=== PATIENT | female | born 1975 | race Caucasian/White ===

== ENCOUNTER 2018-02-18 11:22 | Emergency (ER) | payer SELFPAY ==
[2018-02-18] MEDS ORDERED: MORPHINE SULFATE 10 MG/ML INJ IV ONE ×2 (12:20→13:27)
[2018-02-18] MEDS ORDERED: NORMAL SALINE 1000 ML 1,000 ML IV ONE (12:21)
[2018-02-18] MEDS ORDERED: ONDANSETRON HCL INJ/PF 4 MG/2 ML SDV IV ONE ×2 (12:21→13:27)
--- NOTE | 2018-02-18 12:26 | ER Document Report ---
ED Medical Screen (RME) - General Chief Complaint: Abdominal Pain Stated Complaint: ABDOMINAL/ABDOMINAL PAIN Time Seen by Provider: 02/18/18 12:14 Mode of Arrival: Ambulatory Information source: Patient TRAVEL OUTSIDE OF THE [place] IN LAST 30 DAYS: No - HPI Patient complains to provider of: Abdominal pain Onset: Other - This is a 42-year-old HIV-positive female with an undetectable viral load and a normal CD4 count that presents for evaluation of pain in her right lower back as well as her right lower abdomen. Endorses nausea associated with this intense pain along the right side without any obvious dysuria constipation or other symptoms. Denies any fevers or chills. Is uncertain whether or not this could be related to her back pain. She does have her appendix she does have her gallbladder. - Related Data Allergies/Adverse Reactions: Penicillins Allergy (Verified 02/18/18 11:25) Past Medical History - Social History Chew tobacco use (# tins/day): No Frequency of alcohol use: None Drug Abuse: None Renal/ Medical History: Denies: Hx Peritoneal Dialysis Physical Exam - Vital signs Vitals: Temp Pulse Resp BP Pulse Ox 98.8 F 80 18 131/77 H 96 02/18/18 11:33 02/18/18 11:33 02/18/18 11:33 02/18/18 11:33 02/18/18 11:33 Course - Re-evaluation Re-evalutation: 02/18/18 12:22 This is a 42-year-old HIV-positive female with right lower quadrant abdominal pain. On examination she has remarkable tenderness with true rebound. We will initiate workup for potential appendicitis. I performed a rapid medical screening examination on this patient, I believe that she will require further investigation disposition determination will defer to secondary provider. - Vital Signs Vital signs: Temp Pulse Resp BP Pulse Ox 98.8 F 80 18 131/77 H 96 02/18/18 11:33 02/18/18 11:33 02/18/18 11:33 02/18/18 11:33 02/18/18 11:33
[2018-02-18 13:13] LABS: APPEARANCE,URINE CLEAR; BILIRUBIN,URINE NEGATIVE (NEGATIVE); GLUCOSE, URINE NEGATIVE (NEGATIVE); KETONES,URINE NEGATIVE (NEGATIVE)
[2018-02-18 13:14] LABS: ADD MANUAL MICROSCOPIC YES; BACTERIA,URINE TRACE /HPF; COLOR,URINE LIGHT YELLOW; LEUKOCYTE ESTERASE,URINE NEGATIVE (NEGATIVE); NITRITE,URINE NEGATIVE (NEGATIVE); PROTEIN,URINE NEGATIVE (NEGATIVE); UROBILINOGEN,URINE NEGATIVE mg/dL (<2.0); WBC,URINE 0-1 /HPF
[2018-02-18 13:23] LABS: URINE AMPHETAMINES SCREEN NEGATIVE; URINE BARBITURATES SCREEN NEGATIVE; URINE BENZODIAZEPINES SCREEN NEGATIVE; URINE COCAINE SCREEN NEGATIVE; URINE MARIJUANA (THC) SCREEN NEGATIVE; URINE METHADONE SCREEN NEGATIVE; URINE PHENCYCLIDINE SCREEN NEGATIVE
[2018-02-18] MEDS ORDERED: KETOROLAC TROMETHAMINE INJ/PF 30 MG/1 ML SDV IV ONE (13:26)
[2018-02-18 13:48] LABS: ABSOLUTE BASOPHILS # (AUTO) 0.1 10^3/uL (0.0-0.2); ABSOLUTE EOSINOPHILS # (AUTO) 0.1 10^3/uL (0.0-0.6); ABSOLUTE LYMPHOCYTES (AUTO) 3.9 10^3/uL (0.5-4.7); ABSOLUTE MONOCYTES (AUTO) 0.5 10^3/uL (0.1-1.4); ABSOLUTE NEUT (AUTO) 4.7 10^3/uL (1.7-8.2); BASOPHILS % (AUTO) 0.6 % (0-2); EOSINOPHILS % (AUTO) 0.9 % (0-6); HEMOGLOBIN 15.3 g/dL (12.0-15.5); LYMPHOCYTES % (AUTO) 42.1 % (13-45); MEAN CORPUSCULAR HEMOGLOBIN 31.6 pg (27.0-33.4); MEAN CORPUSCULAR HGB CONC 34.8 g/dL (32.0-36.0); MEAN CORPUSCULAR VOLUME 91 fl (80-97); MONOCYTES % (AUTO) 5.2 % (3-13); PLATELET COUNT 311 10^3/uL (150-450); RED BLOOD COUNT 4.85 10^6/uL (3.72-5.28); RED CELL DISTRIBUTION WIDTH 13.5 % (11.5-14.0); SEGMENTED NEUTROPHILS % (AUTO) 51.2 % (42-78); TOTAL CELLS COUNTED % (AUTO) 100 %; WHITE BLOOD COUNT 9.2 10^3/uL (4.0-10.5)
[2018-02-18 14:09] LABS: ALANINE AMINOTRANSFERASE 38 U/L (9-52); ALBUMIN 4.4 g/dL (3.5-5.0); ALKALINE PHOSPHATASE 146 U/L (38-126); ANION GAP 11 (5-19); ASPARTATE AMINO TRANSFERASE 28 U/L (14-36); BILIRUBIN,DIRECT 0.1 mg/dL (0.0-0.4); BILIRUBIN,TOTAL 0.5 mg/dL (0.2-1.3); BLOOD UREA NITROGEN 10 mg/dL (7-20); CARBON DIOXIDE 25 mmol/L (22-30); CHLORIDE 105 mmol/L (98-107); GLUCOSE 87 mg/dL (75-110); LIPASE 93.6 U/L (23-300); POTASSIUM 4.8 mmol/L (3.6-5.0); SODIUM 141.3 mmol/L (137-145); TOTAL PROTEIN 7.6 g/dL (6.3-8.2)
--- NOTE | 2018-02-18 16:02 | RADIOLOGY REPORT (SQ) ---
EXAM DESCRIPTION: CT ABD/PELVIS WITH IV ONLY COMPLETED DATE/TIME: 02/18/2018 3:41 pm REASON FOR STUDY: concern for appendicitis COMPARISON: None. TECHNIQUE: CT scan of the abdomen and pelvis performed using helical scanning technique with dynamic intravenous contrast injection. No oral contrast. Images reviewed with lung, soft tissue, and bone windows. Reconstructed coronal and sagittal MPR images reviewed. Delayed images for evaluation of the urinary system also acquired. All images stored on PACS. All CT scanners at this facility use dose modulation, iterative reconstruction, and/or weight based d osing when appropriate to reduce radiation dose to as low as reasonably achievable (ALARA). [facility]: Dose Right [facility]: CareDose [facility]: Dose Right [facility]: Teradose 4D [facility]: Jogli CONTRAST TYPE AND DOSE: contrast/concentration: Isovue 350.00 mg/ml; Total Contrast Delivered: 93.0 ml; Total Saline Delivered: 71.0 ml 93 cc Omnipaque 350- low osmolar. RENAL FUNCTION: None required. The patient is less than 50 years old. RADIATION DOSE: CT Rad equipment meets quality standard of care and radiation dose reduction techniq ues were employed. CTDIvol: 12.6 - 17.1 mGy. DLP: 1659 mGy-cm.. LIMITATIONS: None. FINDINGS: LOWER CHEST: No significant findings. No nodules or infiltrates. LIVER: Normal size. No masses. No dilated ducts. SPLEEN: Normal size. No focal lesions. PANCREAS: No masses. No significant calcifications. No adjacent inflammation or peripancreatic fluid collections. Pancreatic duct not dilated. GALLBLADDER: No identified stones by CT criteria. No inflammatory changes to suggest cholecystitis. ADRENAL GLANDS: No significant masses or asymmetry. RIGHT KIDNEY AND URETER: No solid masses. No significant calcifications. No hydronephrosis or hyd roureter. LEFT KIDNEY AND URETER: No solid masses. No significant calcifications. No hydronephrosis or hydr oureter. AORTA AND VESSELS: No aneurysm. No dissection. Renal arteries, SMA, celiac without stenosis. RETROPERITONEUM: No retroperitoneal adenopathy, hemorrhage or masses. BOWEL AND PERITONEAL CAVITY: No masses or inflammatory changes. No free fluid or peritoneal masses. APPENDIX: Normal. PELVIS: No mass. No free fluid. Normal bladder. ABDOMINAL WALL: No masses. No hernias. BONES: No significant or acute findings. OTHER: No other significant finding. IMPRESSION: NO SIGNIFICANT OR ACUTE FINDING IN THE ABDOMEN OR PELVIS ON CT SCAN WITH IV CONTRAST. N o CT evidence of appendicitis as clinically questioned. TECHNICAL DOCUMENTATION: JOB ID: [id number] Quality ID # [id number]: Final reports with documentation of one or more dose reduction techniques (e.g., Au tomated exposure control, adjustment of the mA and/or kV according to patient size, use of iterative reconstruction technique) 2010 [employer]- All Rights Reserved Reading location - IP/workstation name: [email or web address]
--- NOTE | 2018-02-18 16:44 | ER Document Report ---
ED GI/ - General Chief Complaint: Abdominal Pain Stated Complaint: ABDOMINAL/ABDOMINAL PAIN Time Seen by Provider: 02/18/18 12:14 Mode of Arrival: Ambulatory Information source: Patient, Relative Notes: Patient is a 42-year-old female comes emergency room complaining of abdominal pain. Patient states that right side and right flank pain. Started yesterday and has been constant it has been dull and sharp. Anything she does hurts it. She denies any nausea vomiting or diarrhea states she has a history of kidney stones but this does not feel exactly like a kidney stone. She cannot find a position of comfort. She denies any fever. Patient has a history of MIs. And she smokes 1/2 packs here today. She also states that she has a history of blood in her urine in the past. She also has a history of HIV high cholesterol , hypertension, GERD, and kidney stones. She had a tubal ligation and lipoma removed and a heart cath. TRAVEL OUTSIDE OF THE [place] IN LAST 30 DAYS: No - HPI Patient complains to provider of: Abdominal pain, Flank pain. No: Diarrhea, Dysuria Onset: Yesterday Timing/Duration: Sudden, Gradual, Persistent, Worse Quality of pain: Achy, Burning, Pressure, Throbbing Severity at maximum: Moderate Pain Level: 4 Location: RUQ, Right flank Adult Front & Back Diagram: 1 - Area of pain discomfort LMP: Now Sexual history: Inactive Associated symptoms: Radiates to back Exacerbated by: Movement, Walking, Coughing, Deep breathing Relieved by: Denies Similar symptoms previously: Yes Recently seen / treated by doctor: No - Related Data Allergies/Adverse Reactions: Penicillins Allergy (Verified 02/18/18 12:23) Past Medical History - Social History Smoking Status: Current Every Day Smoker Cigarette use (# per day): Yes Chew tobacco use (# tins/day): No Smoking Education Provided: No - Pack a day Frequency of alcohol use: None Drug Abuse: None Family History: Reviewed & Not Pertinent Patient has suicidal ideation: No Patient has homicidal ideation: No - Past Medical History Cardiac Medical History: Reports: Hx Heart Attack, Hx Hypercholesterolemia, Hx Hypertension Renal/ Medical History: Reports: Hx Kidney Stones. Denies: Hx Peritoneal Dialysis GI Medical History: Reports: Hx Gastroesophageal Reflux Disease Past Surgical History: Reports: Hx Cardiac Catheterization - with stent, Hx Orthopedic Surgery - carpal tunnel, Hx Tubal Ligation Review of Systems - Review of Systems Constitutional: No symptoms reported EENT: No symptoms reported Cardiovascular: No symptoms reported Respiratory: No symptoms reported Gastrointestinal: Abdominal pain. denies: Nausea, Vomiting, Constipation Genitourinary: No symptoms reported Female Genitourinary: No symptoms reported Musculoskeletal: No symptoms reported Skin: No symptoms reported Hematologic/Lymphatic: No symptoms reported Neurological/Psychological: No symptoms reported -: Yes All other systems reviewed and negative Physical Exam - Vital signs Vitals: Temp Pulse Resp BP Pulse Ox 98.8 F 80 18 131/77 H 96 02/18/18 11:33 02/18/18 11:33 02/18/18 11:33 02/18/18 11:33 02/18/18 11:33 Interpretation: Hypertensive - General General appearance: Alert In distress: None - HEENT Head: Normocephalic, Atraumatic Eyes: Normal Conjunctiva: Normal Cornea: Normal Ears: Normal External canal: Normal Tympanic membrane: Normal Sinus: Normal Nasal: Normal, Clear rhinorrhea Mouth/Lips: Other Mucous membranes: Normal, Moist, Other Pharynx: Normal. No: Erythema, Exudate, Peritonsillar abscess, Post nasal drainage, Retropharyngeal abscess, Tonsillar hypertrophy, Uvular edema, Potential airway comprom. Neck: Normal, Supple, Thyroid nodule. No: Anterior cervical chain, Posterior cervical chain, Brudzinski, Carotid bruit, Kernig's, Lymphadenopathy, Meningismus, Neck mass, Shotty nodes, Subcutaneous emphysema, Thyromegally - Respiratory Chest status: Nontender Breath sounds: Normal Chest palpation: Normal - Cardiovascular Rhythm: Regular Heart sounds: Normal auscultation Murmur: No - Abdominal Inspection: Normal Distension: No distension, Other - Examination patient's abdomen shows it to be slightly distended mildly tympanitic in the upper quadrants. There is no specific tenderness to percussion or palpation. Bowel sounds are present but they are slightly decreased. Patient has no specific abdominal signs no peritoneal signs. She does have a over exaggerated response when I have ballottement to the right lower quad to mid quad area in the kidney area. There is moderate tenderness to this. Percussions light tenderness on the right side left is negative. Tenderness: No: Nontender, Tender, McBurney's point, Field's sign, Guarding, Rebound, Other Organomegaly: No: No organomegaly - Back Back: Normal, Tender. No: Deformity/step-off, CVA tenderness, Vertebra tenderness, Scars, Scoliosis, Wounds - Extremities General upper extremity: Normal inspection, Nontender, Normal ROM, Normal strength General lower extremity: Normal inspection, Nontender, Normal ROM, Normal strength - Neurological Neuro grossly intact: Yes Cognition: Normal Orientation: AAOx4 Barnum Coma Scale Eye Opening: Spontaneous Barnum Coma Scale Verbal: Oriented Barnum Coma Scale Motor: Obeys Commands Barnum Coma Scale Total: 15 Speech: Normal Cranial nerves: Normal - Skin Skin Temperature: Warm Skin Moisture: Dry Course - Re-evaluation Re-evalutation: 02/18/18 17:12 Patient's workup was benign. CT showed no acute findings. Physical exam goes along with a strained muscle in the abdominal area. 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 The children at the age right now that is all he wanted his be picked up and they are quite heavy. We will try her on a little hydrocodone some Flexeril. I have instructed her to come back to ER if she has any concerns or problems. - Vital Signs Vital signs: Temp Pulse Resp BP Pulse Ox 98.8 F 80 18 131/77 H 96 02/18/18 11:33 02/18/18 11:33 02/18/18 11:33 02/18/18 11:33 02/18/18 11:33 - Laboratory Result Diagrams: 02/18/18 13:34 02/18/18 13:34 Laboratory results interpreted by me: 02/18/18 02/18/18 12:30 13:34 Alkaline Phosphatase 146 H Urine Blood MODERATE H Discharge - Discharge Clinical Impression: Abdominal muscle strain Qualifiers: Encounter type: initial encounter Qualified Code(s): S39.011A - Strain of muscle, fascia and tendon of abdomen, initial encounter Condition: Critical Disposition: HOME, SELF-CARE Instructions: Abdominal Pain ([facility]), Muscle Strain ([facility]) Additional Instructions: Home and rest. Medication as prescribed. As we discussed ice to the area or moist heat which ever makes it feel better. If you spike a fever if you localize her pain to the other spot return to ER for recheck. Prescriptions: Cyclobenzaprine HCl [Flexeril 10 mg Tablet] 10 mg PO TID #21 tablet Hydrocodone/Acetaminophen [Stanberry 5-325 mg Tablet] 1 tab PO Q4 #10 tablet Forms: Smoking Cessation Education, Return to Work
[2018-02-18] MEDS ORDERED: OXYCODONE-ACETAMINOPHEN 5-325 MG TABLET PO ONE (16:52)
[2018-02-18 17:56] VITALS: BP 111/74
== END 2018-02-18 17:52 | disposition home or self-care (01) ==
LOC: ER 11:22
DX: S39.011A Strain of muscle, fascia and tendon of abdomen, initial encounter (principal); R10.9 Unspecified abdominal pain; F17.210 Nicotine dependence, cigarettes, uncomplicated; X50.0XXA Overexertion from strenuous movement or load, initial encounter; E78.00 Pure hypercholesterolemia, unspecified; I10 Essential (primary) hypertension; Z87.442 Personal history of urinary calculi; I25.2 Old myocardial infarction; Z98.51 Tubal ligation status; Z88.0 Allergy status to penicillin
CPT/HCPCS: 99284; 96361; 96374; 96375; 36415; 84702; 83690; 85025; 80053; 81001; 80307; 74177; J1885; J2270; J2405; J7030

== ENCOUNTER 2018-08-20 14:01 | Observation (INO) | payer OTHER ==
[2018-08-20] MEDS ORDERED: ACETAMINOPHEN 325 MG TABLET PO ONE (14:48)
--- NOTE | 2018-08-20 14:48 | ER Document Report ---
ED Medical Screen (RME) - General Chief Complaint: Numbness Stated Complaint: LEFT ARM NUMBNESS Time Seen by Provider: 08/20/18 14:41 TRAVEL OUTSIDE OF THE [place] IN LAST 30 DAYS: No - HPI Notes: 08/20/18 14:46 Patient is a 42-year-old female with a history of hypertension, coronary artery disease, radiculopathy, chronic back/neck pain who presents emergency department complaining of numbness/tingling to the left face and left upper extremity over the past 3 days and chest heaviness that began today. Patient states that she does have a right-sided headache as well over the past couple days. She is eating and drinking without difficulty. She is urinating normally. Ambulating makes her symptoms worse. Denies head injury, fever, neck stiffness, URI, SOB, Abd pain, or rash. I have treated and performed a rapid initial assessment of this patient. A comprehensive ED assessment and evaluation of the patient, analysis of test results and completion of medical decision making process will be conducted by additional ED providers. PHYSICAL EXAMINATION: GENERAL: Well-appearing, well-nourished and in no acute distress. A&Ox4. Answers questions appropriately. HEAD: Atraumatic, normocephalic. Non-tender. EYES: Pupils equal round and reactive to light, extraocular movements intact, sclera anicteric, conjunctiva are normal. No nystagmus. ENT: Nares patent and without discharge. oropharynx clear without exudates. No tonsilar hypertrophy or erythema. Moist mucous membranes. NECK: Normal range of motion, supple without lymphadenopathy. No rigidity/meningismus. No midline tenderness. LUNGS: Breath sounds clear to auscultation bilaterally and equal. No wheezes rales or rhonchi. HEART: Regular rate and rhythm without murmurs, rubs, gallops. Musculoskeletal: Ext's b/l: FROM to passive/active. Strength 5+/5. No deficits noted. No bony tenderness of extremities. Extremities: No cyanosis, clubbing, or edema b/l. Peripheral pulses 2+. Capillary refill less than 2 seconds. NEUROLOGICAL: NIH 1 (for dec sensation left UE/face). GCS 15. Cranial nerves grossly intact. Normal speech, normal gait. Normal sensory, motor exams. Reflexes 2+ b/l. KEREN's negative. Pronator drift negative. Heel/zepeda, finger/nose wnl. PSYCH: Normal mood, normal affect. SKIN: Warm, Dry, normal turgor, no rashes or lesions noted. - Related Data Allergies/Adverse Reactions: efavirenz [From Sustiva] Allergy (Verified 08/20/18 14:04) lamotrigine [From Lamictal] Allergy (Verified 08/20/18 14:04) Penicillins Allergy (Verified 02/18/18 12:23) Past Medical History - Past Medical History Cardiac Medical History: Reports: Hx Heart Attack, Hx Hypercholesterolemia, Hx Hypertension Renal/ Medical History: Reports: Hx Kidney Stones. Denies: Hx Peritoneal Dialysis GI Medical History: Reports: Hx Gastroesophageal Reflux Disease Past Surgical History: Reports: Hx Cardiac Catheterization - with stent, Hx Orthopedic Surgery - carpal tunnel, Hx Tubal Ligation Physical Exam - Vital signs Vitals: Temp Pulse Resp BP Pulse Ox 97.8 F 63 22 H 129/88 H 97 08/20/18 14:11 08/20/18 14:11 08/20/18 14:11 08/20/18 14:11 08/20/18 14:11 Course - Vital Signs Vital signs: Temp Pulse Resp BP Pulse Ox 97.8 F 63 22 H 129/88 H 97 08/20/18 14:11 08/20/18 14:11 08/20/18 14:11 08/20/18 14:11 08/20/18 14:11
--- NOTE | 2018-08-20 15:14 | RADIOLOGY REPORT (SQ) ---
EXAM DESCRIPTION: CT HEAD WITHOUT COMPLETED DATE/TIME: 08/20/2018 2:57 pm REASON FOR STUDY: Left UE/face dec sensation, rt side [place] COMPARISON: None. TECHNIQUE: Axial images acquired through the brain without intravenous contrast. Images reviewed wi th bone, brain and subdural windows. Additional sagittal and coronal reconstructions were generated. Images stored on PACS. All CT scanners at this facility use dose modulation, iterative reconstruction, and/or weight based d osing when appropriate to reduce radiation dose to as low as reasonably achievable (ALARA). [facility]: Dose Right [facility]: CareDose [facility]: Dose Right [facility]: Teradose 4D [facility]: BOS [employer] RADIATION DOSE: CT Rad equipment meets quality standard of care and radiation dose reduction techniq ues were employed. CTDIvol: 53.2 mGy. DLP: 1017 mGy-cm. mGy. LIMITATIONS: None. FINDINGS: VENTRICLES: Normal size and contour. CEREBRUM: No masses. No hemorrhage. No midline shift. No evidence for acute infarction. Normal gra y/white matter differentiation. No areas of low density in the white matter. CEREBELLUM: No masses. No hemorrhage. No alteration of density. No evidence for acute infarction. EXTRAAXIAL SPACES: No fluid collections. No masses. ORBITS AND GLOBE: No intra- or extraconal masses. Normal contour of globe without masses. CALVARIUM: No fracture. PARANASAL SINUSES: No fluid or mucosal thickening. SOFT TISSUES: No mass or hematoma. OTHER: No other significant finding. IMPRESSION: NORMAL BRAIN CT WITHOUT CONTRAST. EVIDENCE OF ACUTE STROKE: NO. COMMENT: Quality ID # [id number]: Final reports with documentation of one or more dose reduction techniques (e.g., Automated exposure control, adjustment of the mA and/or kV according to patient size, use of iterative reconstruction technique) TECHNICAL DOCUMENTATION: JOB ID: [id number] [employer]- All Rights Reserved Reading location - IP/workstation name: [email or web address]
--- NOTE | 2018-08-20 15:15 | RADIOLOGY REPORT (SQ) ---
EXAM DESCRIPTION: CHEST SINGLE VIEW COMPLETED DATE/TIME: 08/20/2018 2:57 pm REASON FOR STUDY: chest heaviness COMPARISON: None. EXAM PARAMETERS: NUMBER OF VIEWS: One view. TECHNIQUE: Single frontal radiographic view of the chest acquired. RADIATION DOSE: NA LIMITATIONS: None. FINDINGS: LUNGS AND PLEURA: No opacities, masses or pneumothorax. No pleural effusion. MEDIASTINUM AND HILAR STRUCTURES: No masses. Contour normal. HEART AND VASCULAR STRUCTURES: Heart normal in size. Normal vasculature. BONES: No acute findings. HARDWARE: None in the chest. OTHER: No other significant finding. IMPRESSION: NO ACUTE RADIOGRAPHIC FINDING IN THE CHEST. TECHNICAL DOCUMENTATION: JOB ID: [id number] [employer]- All Rights Reserved Reading location - IP/workstation name: [email or web address]
[2018-08-20 15:44] LABS: ABSOLUTE BASOPHILS # (AUTO) 0.1 10^3/uL (0.0-0.2); ABSOLUTE EOSINOPHILS # (AUTO) 0.1 10^3/uL (0.0-0.6); ABSOLUTE LYMPHOCYTES (AUTO) 3.2 10^3/uL (0.5-4.7); ABSOLUTE MONOCYTES (AUTO) 0.6 10^3/uL (0.1-1.4); ABSOLUTE NEUT (AUTO) 8.3 10^3/uL (1.7-8.2); BASOPHILS % (AUTO) 0.7 % (0-2); EOSINOPHILS % (AUTO) 0.8 % (0-6); HEMATOCRIT 44.9 % (36.0-47.0); HEMOGLOBIN 15.5 g/dL (12.0-15.5); LYMPHOCYTES % (AUTO) 26.1 % (13-45); MEAN CORPUSCULAR HEMOGLOBIN 31.9 pg (27.0-33.4); MEAN CORPUSCULAR HGB CONC 34.6 g/dL (32.0-36.0); MEAN CORPUSCULAR VOLUME 92 fl (80-97); MONOCYTES % (AUTO) 4.9 % (3-13); PLATELET COUNT 357 10^3/uL (150-450); RED BLOOD COUNT 4.87 10^6/uL (3.72-5.28); RED CELL DISTRIBUTION WIDTH 12.9 % (11.5-14.0); SEGMENTED NEUTROPHILS % (AUTO) 67.5 % (42-78); TOTAL CELLS COUNTED % (AUTO) 100 %; WHITE BLOOD COUNT 12.2 10^3/uL (4.0-10.5)
[2018-08-20 16:02] LABS: ALANINE AMINOTRANSFERASE 21 U/L (9-52); ALBUMIN 4.5 g/dL (3.5-5.0); ALKALINE PHOSPHATASE 163 U/L (38-126); ANION GAP 8 (5-19); ASPARTATE AMINO TRANSFERASE 22 U/L (14-36); BILIRUBIN,DIRECT 0.2 mg/dL (0.0-0.4); BILIRUBIN,TOTAL 0.4 mg/dL (0.2-1.3); BLOOD UREA NITROGEN 9 mg/dL (7-20); CARBON DIOXIDE 23 mmol/L (22-30); CHLORIDE 108 mmol/L (98-107); GLUCOSE 99 mg/dL (75-110); POTASSIUM 4.3 mmol/L (3.6-5.0); SODIUM 139.2 mmol/L (137-145); TOTAL PROTEIN 8.2 g/dL (6.3-8.2)
--- NOTE | 2018-08-20 17:59 | EKG REPORT ---
SEVERITY:- BORDERLINE ECG - SINUS RHYTHM PROBABLE LEFT ATRIAL ABNORMALITY : Confirmed by: Tyesha Marin 20-Aug-2018 17:58:25
[2018-08-20] MEDS ORDERED: ASPIRIN 81 MG TABLET, CHEWABLE PO ONE (18:18)
[2018-08-20] MEDS ORDERED: NITROGLYCERIN 2% OINTMENT 1 GM PACKET TP ONE (18:18)
[2018-08-20] MEDS ORDERED: MORPHINE SULFATE 10 MG/ML INJ IV ONE ×2 (18:19→20:08)
[2018-08-20] MEDS ORDERED: ONDANSETRON HCL INJ/PF 4 MG/2 ML SDV IV ONE (18:19)
[2018-08-20] MEDS ORDERED: ACETAMINOPHEN 325 MG TABLET PO PRN (20:07)
[2018-08-20] MEDS ORDERED: NITROGLYCERIN 0.4 MG/TAB 25 TAB/BOTTLE SL PRN (20:07)
--- NOTE | 2018-08-20 20:11 | ER Document Report ---
ED General - General Chief Complaint: Numbness Stated Complaint: LEFT ARM NUMBNESS Time Seen by Provider: 08/20/18 14:41 Mode of Arrival: Ambulatory Information source: Patient Notes: This is a 42-year-old female with a history of HIV, coronary artery disease (LAD stent) who has been experiencing chest discomfort associated with left arm numbness. Patient states that the left arm numbness gets worse with exertion. She does state that it is similar discomfort than when she had her heart attack several years ago in [place] (although not quite exactly the same). She denies any recent illnesses. She has been out of her HIV medicine for the past week. TRAVEL OUTSIDE OF THE [place] IN LAST 30 DAYS: No - HPI Onset: Last week Onset/Duration: Gradual Quality of pain: Dull Severity: Moderate Pain Level: 1 Associated symptoms: Chest pain, Other - Left arm heaviness numbness. denies: Fever, Shortness of breath Exacerbated by: Other - Is to be worse with exertion Relieved by: Denies Similar symptoms previously: No Recently seen / treated by doctor: No - Related Data Allergies/Adverse Reactions: efavirenz [From Sustiva] Allergy (Verified 08/20/18 14:04) lamotrigine [From Lamictal] Allergy (Verified 08/20/18 14:04) Penicillins Allergy (Verified 02/18/18 12:23) Past Medical History - General Information source: Patient - Social History Smoking Status: Current Every Day Smoker Cigarette use (# per day): Yes - 1 pack/day Chew tobacco use (# tins/day): No Frequency of alcohol use: None Drug Abuse: None Lives with: Family Family History: Reviewed & Not Pertinent Patient has suicidal ideation: No Patient has homicidal ideation: No - Past Medical History Cardiac Medical History: Reports: Hx Heart Attack, Hx Hypercholesterolemia, Hx Hypertension Renal/ Medical History: Reports: Hx Kidney Stones. Denies: Hx Peritoneal Dialysis GI Medical History: Reports: Hx Gastroesophageal Reflux Disease Past Surgical History: Reports: Hx Cardiac Catheterization - with stent, Hx Orthopedic Surgery - carpal tunnel, Hx Tubal Ligation Review of Systems - Review of Systems Constitutional: denies: Chills, Fever EENT: No symptoms reported Cardiovascular: See HPI Respiratory: No symptoms reported Gastrointestinal: See HPI Genitourinary: No symptoms reported Female Genitourinary: No symptoms reported Musculoskeletal: No symptoms reported Skin: No symptoms reported Hematologic/Lymphatic: No symptoms reported Neurological/Psychological: No symptoms reported Physical Exam - Vital signs Vitals: Temp Pulse Resp BP Pulse Ox 97.8 F 63 22 H 129/88 H 97 08/20/18 14:11 08/20/18 14:11 08/20/18 14:11 08/20/18 14:11 08/20/18 14:11 Notes: Physical exam: GENERAL: She is alert and oriented x3, no acute distress HEAD: Atraumatic, normocephalic. EYES: Pupils equal round and reactive to light, extraocular movements intact, sclera anicteric, conjunctiva are normal. ENT: TMs normal, nares patent, oropharynx clear without exudates. Moist mucous membranes. NECK: Normal range of motion, supple without obvious mass or JVD. LUNGS: Breath sounds clear to auscultation bilaterally and equal. No wheezes ra les or rhonchi. HEART: Regular rate and rhythm without murmurs, rubs or gallops. ABDOMEN: Soft, normoactive bowel sounds. No tenderness to palpation. No guarding, no rebound. No masses appreciated. EXTREMITIES: Normal range of motion, no pitting or edema. No clubbing or cyanosis. NEUROLOGICAL: Cranial nerves II through XII grossly intact. Normal speech, moving all extremities. PSYCH: Normal mood, normal affect. SKIN: Warm, Dry, normal turgor, no rashes or lesions noted. Course - Re-evaluation Re-evalutation: 08/20/18 20:14 EKG #1 at 1544 shows sinus rhythm with a ventricular rate 90, no acute ST-T wave changes. EKG #2 at 1812 shows sinus rhythm at a rate of approximately 80, no significant changes from earlier EKG. - Vital Signs Vital signs: Temp Pulse Resp BP Pulse Ox 97.8 F 63 22 H 129/88 H 99 08/20/18 14:11 08/20/18 14:11 08/20/18 14:11 08/20/18 14:11 08/20/18 18:19 - Laboratory Result Diagrams: 08/20/18 15:20 08/20/18 15:20 Laboratory results interpreted by me: 08/20/18 08/20/18 15:20 15:20 WBC 12.2 H Absolute Neutrophils 8.3 H Chloride 108 H Alkaline Phosphatase 163 H - Diagnostic Test Radiology reviewed: Image reviewed, Reports reviewed - Chest x-ray looks clear - EKG Interpretation by Me Rate: Normal Rhythm: NSR - EKG Discharge - Discharge Clinical Impression: Chest pain Condition: Stable Disposition: ADMITTED OBSERVATION Admitting Provider: Hernando (Hospitalist) Unit Admitted: Telemetry
[2018-08-20] MEDS: FAMOTIDINE 20 MG TABLET PO SCH (22:11)
[2018-08-20] MEDS: CYCLOBENZAPRINE HCL 10 MG TABLET PO SCH (22:11)
--- NOTE | 2018-08-21 03:45 | PDOC H&P ---
History of Present Illness Admission Date/PCP: 08/20/18 20:17 Patient complains of: Retrosternal chest pain, left arm numbness. History of Present Illness: LOUIE ROSAS is a 42 year old female with a past medical history of depression, chronic pain, dyslipidemia, obesity, tobacco dependent, HIV, and coronary artery disease with a stent in 2011. Patient presents with vague complaints of left face and arm numbness not associated with sharp, 3 out of 5, intermittent retrosternal chest pain that radiates to the back associated with nausea, palpitations, denying shortness of breath, vomiting or diaphoresis. In the emergency room she is found to have an unremarkable workup including a CT of the head. She denies recent change in medications she is referred to the hospitalist for observation. Past Medical History Cardiac Medical History: Reports: Coronary Artery Disease, Myocardial Infarction, Hyperlipidema, Hypertension Denies: Congestive Heart Failure Pulmonary Medical History: Reports: Asthma, Bronchitis, Pneumonia Denies: Chronic Obstructive Pulmonary Disease (COPD), Tuberculosis Neurological Medical History: Denies: Seizures Renal/ Medical History: Denies: End Stage Renal Disease GI Medical History: Reports: Gastroesophageal Reflux Disease Denies: Cirrhosis Musculoskeltal Medical History: Reports: Arthritis Psychiatric Medical History: Reports: Bipolar Disorder, Depression, Tobacco Dependency Hematology: Denies: Anemia, Bleeding Tendencies Past Surgical History Past Surgical History: Reports: Cardiac Catheterization - with stent, Orthopedic Surgery - carpal tunnel, Tubal Ligation Social History Information Source: Patient Lives with: Family Smoking Status: Current Every Day Smoker Frequency of Alcohol Use: Rare Drugs: None - Advance Directive Resuscitation Status: Full Code Family History Family History: Hypertension Parental Family History Reviewed: Yes Children Family History Reviewed: Yes Sibling(s) Family History Reviewed.: Yes Medication/Allergy Home Medications: Atorvastatin Calcium [Lipitor 10 mg Tablet] 40 mg PO QHS 08/20/18 Dolutegravir Sodium [Tivicay] 50 mg PO DAILY 08/20/18 Emtricitabine/Tenofovir [Truvada Tablet] 1 tab PO DAILY 08/20/18 Gabapentin [Neurontin] 600 mg PO Q8 08/20/18 Aspirin [Aspirin 81 mg Chewable Tablet] 81 mg PO 08/21/18 Clonidine HCl [Catapres] 0.1 mg PO 08/21/18 Fluoxetine HCl 40 mg PO 08/21/18 Quetiapine Fumarate [Seroquel] 100 mg PO 08/21/18 Allergies/Adverse Reactions: efavirenz [From Sustiva] Allergy (Verified 08/20/18 14:04) lamotrigine [From Lamictal] Allergy (Verified 08/20/18 14:04) Penicillins Allergy (Verified 02/18/18 12:23) Review of Systems Constitutional: ABSENT: chills, fever(s), headache(s), weight gain, weight loss Eyes: ABSENT: visual disturbances Ears: ABSENT: hearing changes Cardiovascular: ABSENT: chest pain, dyspnea on exertion, edema, orthropnea, palpitations Respiratory: ABSENT: cough, hemoptysis Gastrointestinal: ABSENT: abdominal pain, constipation, diarrhea, hematemesis, hematochezia, nausea, vomiting Genitourinary: ABSENT: dysuria, hematuria Musculoskeletal: ABSENT: joint swelling Integumentary: ABSENT: rash, wounds Neurological: ABSENT: abnormal gait, abnormal speech, confusion, dizziness, focal weakness, syncope Psychiatric: ABSENT: anxiety, depression, homidical ideation, suicidal ideation Endocrine: ABSENT: cold intolerance, heat intolerance, polydipsia, polyuria Hematologic/Lymphatic: ABSENT: easy bleeding, easy bruising Physical Exam Vital Signs: Temp Pulse Resp BP Pulse Ox 97.6 F 85 17 109/83 96 08/20/18 22:58 08/20/18 22:58 08/20/18 22:58 08/20/18 22:58 08/20/18 22:58 Intake & Output 08/19/18 08/20/18 08/21/18 11:59 11:59 11:59 Weight 91.7 kg General appearance: PRESENT: no acute distress, well-developed, well-nourished Head exam: PRESENT: atraumatic, normocephalic Eye exam: PRESENT: conjunctiva pink, EOMI, PERRLA. ABSENT: scleral icterus Ear exam: PRESENT: normal external ear exam Mouth exam: PRESENT: moist, tongue midline Neck exam: ABSENT: carotid bruit, JVD, lymphadenopathy, thyromegaly Respiratory exam: PRESENT: clear to auscultation chinmay. ABSENT: rales, rhonchi, wheezes Cardiovascular exam: PRESENT: RRR. ABSENT: diastolic murmur, rubs, systolic murmur Pulses: PRESENT: normal dorsalis pedis pul Vascular exam: PRESENT: normal capillary refill GI/Abdominal exam: PRESENT: normal bowel sounds, soft. ABSENT: distended, guarding, mass, organolmegaly, rebound, tenderness Rectal exam: PRESENT: deferred Extremities exam: PRESENT: full ROM. ABSENT: calf tenderness, clubbing, pedal edema Neurological exam: PRESENT: alert, awake, oriented to person, oriented to place, oriented to time, oriented to situation, CN II-XII grossly intact. ABSENT: motor sensory deficit Psychiatric exam: PRESENT: appropriate affect, normal mood. ABSENT: homicidal ideation, suicidal ideation Skin exam: PRESENT: dry, intact, warm. ABSENT: cyanosis, rash Results Laboratory Results: 08/20/18 15:20 08/20/18 15:20 08/20/18 08/20/18 15:20 15:20 WBC 12.2 H RBC 4.87 Hgb 15.5 Hct 44.9 MCV 92 MCH 31.9 MCHC 34.6 RDW 12.9 Plt Count 357 Seg Neutrophils % 67.5 Lymphocytes % 26.1 Monocytes % 4.9 Eosinophils % 0.8 Basophils % 0.7 Absolute Neutrophils 8.3 H Absolute Lymphocytes 3.2 Absolute Monocytes 0.6 Absolute Eosinophils 0.1 Absolute Basophils 0.1 Sodium 139.2 Potassium 4.3 Chloride 108 H Carbon Dioxide 23 Anion Gap 8 BUN 9 Creatinine 0.77 Est GFR ( Amer) > 60 Est GFR (Non-Af Amer) > 60 Glucose 99 Calcium 10.0 Total Bilirubin 0.4 AST 22 ALT 21 Alkaline Phosphatase 163 H Total Protein 8.2 Albumin 4.5 08/20/18 08/20/18 08/21/18 15:20 20:10 02:10 Troponin I < 0.012 < 0.012 < 0.012 Impressions: Chest X-Ray 08/20/18 14:45 IMPRESSION: NO ACUTE RADIOGRAPHIC FINDING IN THE CHEST. Head CT 08/20/18 14:45 IMPRESSION: NORMAL BRAIN CT WITHOUT CONTRAST. EVIDENCE OF ACUTE STROKE: NO. Assessment and Plan - Diagnosis (1) Atypical chest pain Is this a current diagnosis for this admission?: Yes Plan: Atypical chest pain though the patient's pain is atypical there are multiple risk factors for coronary artery disease and subsequently will observe and evaluation of acute coronary syndrome versus coronary artery disease with ondina aj. Cardiac monitoring blood pressure Q6 hours ,TSH, lipid profile, serial cardiac enzymes and cardiac stress test (2) Dyslipidemia Is this a current diagnosis for this admission?: Yes Plan: Empiric statin ordered. Follow-up lipid profile - Time Time Spent with patient: 35 or more minutes - Inpatient Certification Medical Necessity: Need Close Monitoring Due to Risk of Patient Decompensation
[2018-08-21] MEDS: CYCLOBENZAPRINE HCL 10 MG TABLET PO SCH ×2 (05:32→14:13)
--- NOTE | 2018-08-21 09:53 | EKG REPORT ---
SEVERITY:- BORDERLINE ECG - SINUS RHYTHM BORDERLINE T ABNORMALITIES, ANTERIOR LEADS : Confirmed by: Tyesha Marin 21-Aug-2018 09:52:31
--- NOTE | 2018-08-21 09:54 | EKG REPORT ---
SEVERITY:- DEFECTIVE ECG - SINUS RHYTHM WNL : Confirmed by: Tyesha Marin 21-Aug-2018 09:53:32
[2018-08-21 09:55] LABS: CHOLESTEROL 222.03 mg/dL (0-200); TRIGLYCERIDES 176 mg/dL (<150)
[2018-08-21 09:59] LABS: ALANINE AMINOTRANSFERASE 27 U/L (9-52); ALKALINE PHOSPHATASE 132 U/L (38-126); ANION GAP 8 (5-19); ASPARTATE AMINO TRANSFERASE 23 U/L (14-36); BILIRUBIN,DIRECT 0.2 mg/dL (0.0-0.4); BILIRUBIN,TOTAL 0.6 mg/dL (0.2-1.3); BLOOD UREA NITROGEN 11 mg/dL (7-20); CALCIUM 9.7 mg/dL (8.4-10.2); CARBON DIOXIDE 27 mmol/L (22-30); CHLORIDE 105 mmol/L (98-107); GLUCOSE 83 mg/dL (75-110); POTASSIUM 4.3 mmol/L (3.6-5.0); TOTAL PROTEIN 7.1 g/dL (6.3-8.2)
[2018-08-21] MEDS ORDERED: ASPIRIN 81 MG TABLET, ENT COATED PO SCH (10:00)
[2018-08-21 10:06] LABS: DIRECT LDL 126 mg/dL (<100)
[2018-08-21 10:11] LABS: VLDL CHOLESTEROL 35.2 mg/dL (10-31)
[2018-08-21 10:15] LABS: HEMOGLOBIN 14.5 g/dL (12.0-15.5); MEAN CORPUSCULAR HGB CONC 34.5 g/dL (32.0-36.0); MEAN CORPUSCULAR VOLUME 93 fl (80-97); PLATELET COUNT 304 10^3/uL (150-450); RED BLOOD COUNT 4.53 10^6/uL (3.72-5.28); RED CELL DISTRIBUTION WIDTH 12.8 % (11.5-14.0); WHITE BLOOD COUNT 7.3 10^3/uL (4.0-10.5)
[2018-08-21 10:25] LABS: ABSOLUTE LYMPHOCYTES# (MANUAL) 4.5 10^3/uL (0.5-4.7); ABSOLUTE MONOCYTES # (MANUAL) 0.9 10^3/uL (0.1-1.4); BASOPHILS % (MANUAL) 0 % (0-2); EOSINOPHILS % (MANUAL) 0 % (0-6); LYMPHOCYTES % (MANUAL) 59 % (13-45); MONOCYTES % (MANUAL) 12 % (3-13); SEGMENTED NEUTROPHILS % (MAN) 27 % (42-78); TOTAL CELLS COUNTED 100
[2018-08-21 10:26] LABS: PLATELET COMMENT ADEQUATE; RBC MORPHOLOGY COMMENT NORMO-CYTIC/CHROMIC
[2018-08-21] MEDS: FAMOTIDINE 20 MG TABLET PO SCH (12:51)
--- NOTE | 2018-08-21 15:08 | PDOC DISCHARGE SUMMARY ---
General - Admit/Disc Date/PCP Admission Date/Primary Care Provider: 08/20/18 20:17 Discharge Date: 08/21/18 - Discharge Diagnosis (1) Atypical chest pain Is this a current diagnosis for this admission?: Yes (2) CAD (coronary artery disease) Is this a current diagnosis for this admission?: Yes (3) Asymptomatic HIV infection Is this a current diagnosis for this admission?: Yes (4) Dyslipidemia Is this a current diagnosis for this admission?: Yes - Additional Information Resuscitation Status: Full Code Prescriptions: Atorvastatin Calcium [Lipitor 40 mg Tablet] 40 mg PO QHS #30 tablet Pantoprazole Sodium [Protonix [address] Tablet] 40 mg PO QAM #30 tablet.dr Home Medications: Aspirin [Aspirin 81 mg Chewable Tablet] 81 mg PO DAILY 08/21/18 Atorvastatin Calcium [Lipitor 40 mg Tablet] 40 mg PO QHS #30 tablet 08/21/18 Clonidine HCl [Catapres 0.1 mg Tablet] 0.1 mg PO QHS 08/21/18 Cyclobenzaprine HCl [Flexeril 10 mg Tablet] 10 mg PO Q8HP PRN 08/21/18 Dolutegravir Sodium [Tivicay] 50 mg PO DAILY 08/21/18 Emtricitabine/Tenofovir [Truvada Tablet] 1 tab PO DAILY 08/21/18 Fluoxetine HCl [Prozac] 40 mg PO DAILY 08/21/18 Gabapentin [Neurontin] 600 mg PO Q8 08/21/18 Pantoprazole Sodium [Protonix [address] Tablet] 40 mg PO QAM #30 tablet.dr 08/21/18 Quetiapine Fumarate [Seroquel 100 mg Tablet] 100 mg PO QHS 08/21/18 History of Present Illness History of Present Illness: Admitting hospitalist's H&P: LOUIE ROSAS is a 42 year old female with a past medical history of depression, chronic pain, dyslipidemia, obesity, tobacco dependent, HIV, and coronary artery disease with a stent in 2011. Patient presents with vague complaints of left face and arm numbness not associated with sharp, 3 out of 5, intermittent retrosternal chest pain that radiates to the back associated with nausea, palpitations, denying shortness of breath, vomiting or diaphoresis. In the emergency room she is found to have an unremarkable workup including a CT of the head. She denies recent change in medications she is referred to the hospitalist for observation. Hospital Course Hospital Course: This is a 42 year old female with a past medical history of depression, chronic pain, dyslipidemia, obesity, tobacco dependent, HIV, and coronary artery disease with a stent placement in 2011 who was admitted for chest pain to rule out ACS. She describes her chest pain as sharp and occasionally radiating to the left arm. Troponins were all negative. EKGs also were normal. She underwent stress testing. Called by cardiology and discussed normal results of stress test. She will be discharged on a trial of PPI. Her atorvastatin was also increased from 10 to 40 mg daily as lipid panel shows elevated TG and LDL. Physical Exam Vital Signs: Temp Pulse Resp BP Pulse Ox 97.7 F 96 18 101/78 92 08/21/18 10:57 08/21/18 10:57 08/21/18 10:57 08/21/18 10:57 08/21/18 10:57 Intake & Output 08/20/18 08/21/18 08/22/18 06:59 06:59 06:59 Intake Total 320 Balance 320 Weight 202 lb 2.622 oz General appearance: PRESENT: no acute distress, well-developed, well-nourished Head exam: PRESENT: atraumatic, normocephalic Eye exam: PRESENT: conjunctiva pink, EOMI, PERRLA. ABSENT: scleral icterus Ear exam: PRESENT: normal external ear exam Mouth exam: PRESENT: moist, tongue midline Neck exam: ABSENT: carotid bruit, JVD, lymphadenopathy, thyromegaly Respiratory exam: PRESENT: clear to auscultation chinmay. ABSENT: rales, rhonchi, wheezes Cardiovascular exam: PRESENT: RRR. ABSENT: diastolic murmur, rubs, systolic m urmur Pulses: PRESENT: normal dorsalis pedis pul GI/Abdominal exam: PRESENT: normal bowel sounds, soft. ABSENT: distended, guarding, mass, organolmegaly, rebound, tenderness Rectal exam: PRESENT: deferred Neurological exam: PRESENT: alert, awake, oriented to person, oriented to place, oriented to time, oriented to situation, CN II-XII grossly intact. ABSENT: motor sensory deficit Results Laboratory Results: 08/21/18 08:45 08/21/18 08:45 08/20/18 08/20/18 08/21/18 15:20 15:20 08:45 WBC 12.2 H RBC 4.87 Hgb 15.5 Hct 44.9 MCV 92 MCH 31.9 MCHC 34.6 RDW 12.9 Plt Count 357 Seg Neutrophils % 67.5 Lymphocytes % 26.1 Monocytes % 4.9 Eosinophils % 0.8 Basophils % 0.7 Absolute Neutrophils 8.3 H Absolute Lymphocytes 3.2 Absolute Monocytes 0.6 Absolute Eosinophils 0.1 Absolute Basophils 0.1 Sodium 139.2 Potassium 4.3 Chloride 108 H Carbon Dioxide 23 Anion Gap 8 BUN 9 Creatinine 0.77 Est GFR ( Amer) > 60 Est GFR (Non-Af Amer) > 60 Glucose 99 Calcium 10.0 Total Bilirubin 0.4 AST 22 ALT 21 Alkaline Phosphatase 163 H Total Protein 8.2 Albumin 4.5 Triglycerides 176 H Cholesterol 222.03 H LDL Cholesterol Direct 126 H VLDL Cholesterol 35.2 H HDL Cholesterol 51 08/21/18 08/21/18 08:45 08:45 WBC 7.3 RBC 4.53 Hgb 14.5 Hct 42.0 MCV 93 MCH 32.0 MCHC 34.5 RDW 12.8 Plt Count 304 Seg Neutrophils % Not Reportable Lymphocytes % Not Reportable Monocytes % Not Reportable Eosinophils % Not Reportable Basophils % Not Reportable Absolute Neutrophils Not Reportable Absolute Lymphocytes Not Reportable Absolute Monocytes Not Reportable Absolute Eosinophils Not Reportable Absolute Basophils Not Reportable Sodium 140.0 Potassium 4.3 Chloride 105 Carbon Dioxide 27 Anion Gap 8 BUN 11 Creatinine 0.87 Est GFR ( Amer) > 60 Est GFR (Non-Af Amer) > 60 Glucose 83 Calcium 9.7 Total Bilirubin 0.6 AST 23 ALT 27 Alkaline Phosphatase 132 H Total Protein 7.1 Albumin 4.0 Triglycerides Cholesterol LDL Cholesterol Direct VLDL Cholesterol HDL Cholesterol 08/20/18 08/20/18 08/21/18 15:20 20:10 02:10 Troponin I < 0.012 < 0.012 < 0.012 08/21/18 08:45 Troponin I < 0.012 Impressions: Chest X-Ray 08/20/18 14:45 IMPRESSION: NO ACUTE RADIOGRAPHIC FINDING IN THE CHEST. Head CT 08/20/18 14:45 IMPRESSION: NORMAL BRAIN CT WITHOUT CONTRAST. EVIDENCE OF ACUTE STROKE: NO. Qualifiers - * PATIENT BEING DISCHARGED WITH ANY OF THE FOLLOWING DIAGNOSIS: No
[2018-08-21 15:23] VITALS: BP 112/84
[2018-08-21] MEDS ORDERED: REGADENOSON INJ 0.4 MG/5 ML DISP.SYRIN IV ONE (20:49)
--- NOTE | 2018-08-25 23:06 | DRAGON STRESS TEST REPORT ---
Intravenous Lexiscan Cardiolite stress test using single photon emmision computerized tomography. Date of procedure: 08/21/2018. Ordering Provider: Dr. Villagomez. Patient's status: In Patient. Indication: Chest pain. Coronary risk factors: Age and dyslipidemia. Resting EKG: Sinus Rhythm. Within Normal Limits. Stress EKG: No changes of ischemia. The patient had no chest pain or discomfort, and there were no arrhythmias seen. Reason for termination: Protocol. Conclusions: Normal EKG and hemodynamic response to IV Lexiscan. Nuclear data: At rest the patient was given 15.24 millicuries of technetium 99m sestamibi injected intravenously. As per protocol rest non gated SPECT images were obtained. Subsequently the patient was given intravenous Lexiscan at a dose of 0.4 mg in 5 mL intravenously, followed by flush with normal saline. Subsequently the stress dose of 42.5 millicuries of technetium 99m sestamibi was injected intravenously. As per protocol stress gated images were obtained. Nuclear interpretation: Review of images showed that all segments of the myocardium had normal perfusion at rest, and normal perfusion post stress with IV Lexiscan. All segments of the myocardium had normal motion, contraction, and thickening by gated study. T. I D. ratio was normal at 1.01. There is no transient ischemic dilatation of the left ventricle. Computer read rest, and stress left ventricular ejection fraction were 50 %, and 54 %, respectively. Visually both the stress and rest ejection fractions were normal, and greater than 55%. Conclusion: 1. There is no scintigraphic evidence of Lexiscan induced myocardial ischemia. 2. There is no scintigraphic evidence of myocardial infarction/scar. Recommendations: Aggressive risk factor modification, and treating the underlying co- morbidities. MTDD
== END 2018-08-21 15:56 | disposition home or self-care (01) ==
LOC: ER 14:01 → EH 20:17 → 5 22:44
PROVIDERS: ADMIT Internal Medicine; ATTEND Internal Medicine
DX: R07.89 Other chest pain (principal); I25.10 Atherosclerotic heart disease of native coronary artery without angina pectoris; Z21 Asymptomatic human immunodeficiency virus [HIV] infection status; E78.5 Hyperlipidemia, unspecified; F32.9 Major depressive disorder, single episode, unspecified; G89.29 Other chronic pain; M54.2 Cervicalgia; M54.9 Dorsalgia, unspecified; R20.0 Anesthesia of skin; R11.0 Nausea; R00.2 Palpitations; I10 Essential (primary) hypertension; R51 Headache; F17.210 Nicotine dependence, cigarettes, uncomplicated; I25.2 Old myocardial infarction; R29.701 NIHSS score 1; Z95.5 Presence of coronary angioplasty implant and graft; Z79.82 Long term (current) use of aspirin; Z79.899 Other long term (current) drug therapy; Z82.49 Family history of ischemic heart disease and other diseases of the circulatory system; Z87.19 Personal history of other diseases of the digestive system; Z87.442 Personal history of urinary calculi; Z87.39 Personal history of other diseases of the musculoskeletal system and connective tissue
CPT/HCPCS: 93005; 96376; 99285; 96374; 96375; 36415 ×2; 85025 ×2; 80053 ×2; 84484 ×2; 83036; 80061; 93017; 71045; 78452; 70450; 93010; G0378 ×3; A9500; J2785; J2270; J3490 ×2; J2405; Q9969

== ENCOUNTER 2019-03-08 19:04 | Emergency (ER) | payer OTHER ==
[2019-03-08 19:09] VITALS: BP 136/94
[2019-03-08] MEDS ORDERED: LIDOCAINE 5% (700 MG) TRANSDERMAL ADH..PATCH TP ONE (19:49)
[2019-03-08] MEDS ORDERED: HYDROCODONE/ACETAMINOPHEN 5-325 MG (6 TAB/ER DISP) PO PRN (19:49)
[2019-03-08] MEDS ORDERED: PREDNISONE 20 MG TABLET PO ONE (19:50)
--- NOTE | 2019-03-08 19:52 | ER Document Report ---
HPI - HPI Patient complains to provider of: neck pain Time Seen by Provider: 03/08/19 19:32 Onset: Other - 2wk Onset/Duration: Worse Quality of pain: Achy Pain Level: 5 Context: Patient presents with a history of spondylosis and chronic radiculopathy to the upper extremity. Patient complains of increased pain to the left upper extremity for the past 2 weeks. Patient denies any injury, recent illness or fever. Patient states she has taken naproxen and Flexeril at home without any relief of her symptoms. Patient states she previously has had spinal injections to help manage her pain symptoms although is not currently followed by any pain management group. Associated Symptoms: Other - Neck pain, left upper extremity pain. denies: Ch est pain, Nonproductive cough, Productive cough, Fever, Headache, Nausea Exacerbated by: Movement Relieved by: Denies Similar symptoms previously: Yes Recently seen / treated by doctor: No - ROS ROS below otherwise negative: Yes Systems Reviewed and Negative: Yes All other systems reviewed and negative - CONSTITUTIONAL Constitutional: DENIES: Fever, Chills - NEURO Neurology: DENIES: Headache, Weakness, Vision blurred, Dizzinesss / Vertigo - RESPIRATORY Respiratory: DENIES: Trouble Breathing, Coughing - REPRODUCTIVE Reproductive: DENIES: : - MUSCULOSKELETAL Musculoskeletal: REPORTS: Extremity pain, Neck Pain - DERM Skin Color: Normal Skin Problems: None Past Medical History - General Information source: Patient - Social History Smoking Status: Former Smoker Frequency of alcohol use: None Drug Abuse: None Occupation: None Lives with: Family Family History: Hypertension Patient has suicidal ideation: No Patient has homicidal ideation: No - Past Medical History Cardiac Medical History: Reports: Hx Coronary Artery Disease, Hx Heart Attack, Hx Hypercholesterolemia, Hx Hypertension Denies: Hx Congestive Heart Failure Pulmonary Medical History: Reports: Hx Asthma, Hx Bronchitis, Hx Pneumonia Denies: Hx COPD, Hx Tuberculosis Neurological Medical History: Denies: Hx Seizures, Hx Parkinson's Disease Renal/ Medical History: Reports: Hx Kidney Stones. Denies: Hx End Stage Renal Disease, Hx Peritoneal Dialysis GI Medical History: Reports: Hx Gastroesophageal Reflux Disease. Denies: Hx Cirrhosis, Hx Ulcer Musculoskeletal Medical History: Reports Hx Arthritis, Denies Hx Multiple Sclerosis Psychiatric Medical History: Reports: Hx Bipolar Disorder, Hx Depression Denies: Hx Schizophrenia Past Surgical History: Reports: Hx Cardiac Catheterization - with stent, Hx Orthopedic Surgery - carpal tunnel, Hx Tubal Ligation Vertical Provider Document - CONSTITUTIONAL Agree With Documented VS: Yes Exam Limitations: No Limitations General Appearance: WD/WN, No Apparent Distress - INFECTION CONTROL TRAVEL OUTSIDE OF THE [place] IN LAST 30 DAYS: No - HEENT HEENT: Atraumatic, Normocephalic - NECK Neck: Normal Inspection, Supple, Other - No meningismus. negative: Lymphadenopathy-Left, Lymphadenopathy-Right - RESPIRATORY Respiratory: Breath Sounds Normal, No Respiratory Distress - CARDIOVASCULAR Cardiovascular: Regular Rate, Regular Rhythm Pulses: Normal: Radial - BACK Back: Abnormal Inspection - Bilateral trapezius muscle tenderness - MUSCULOSKELETAL/EXTREMETIES Musculoskeletal/Extremeties: MAEW, FROM, No Edema Notes: Normal strength and muscle tone to bilateral upper extremities. - NEURO Level of Consciousness: Awake, Alert, Appropriate Motor/Sensory: No Motor Deficit, No Sensory Deficit - DERM Integumentary: Warm, Dry, No Rash Course - Re-evaluation Re-evalutation: 03/08/19 19:56 Patient presents with a history of chronic pain and chronic neck pain with radiculopathy. Patient states that she is having pain in the location that she has had pain previously although has not been this severe. No rapid progression of symptoms, systemic symptoms including fever chills weight loss or any history of recent back till infection. Patient without any weakness. Patient denies any fever or recent injury. Patient without any focal neurologic deficits. Due to absence of concerning risk factors in history and physical as well as absence of rapidly progressive, severe, or bilateral symptoms, will defer imaging at this point. - Vital Signs Vital signs: Temp Pulse Resp BP Pulse Ox 98.3 F 106 H 18 136/94 H 98 03/08/19 19:08 03/08/19 19:08 03/08/19 19:08 03/08/19 19:08 03/08/19 19:08 Discharge - Discharge Clinical Impression: Cervical radicular pain Condition: Stable Disposition: HOME, SELF-CARE Instructions: Oral Narcotic Medication ([facility]), Radiculopathy ([facility]), Steroid Medication Additional Instructions: Return immediately for any new or worsening symptoms Followup with your primary care provider, call tomorrow to make a followup appointment Follow-up with pain management for further evaluation Take your Flexeril that you have at home as prescribed. Prescriptions: Prednisone [Deltasone 20 mg Tablet] 3 tab PO DAILY 4 Days tablet Lidocaine [Lidoderm 5% (700 mg) Transdermal Patch] 1 patch TP DAILY PRN #10 adh..patch PRN Reason: Referrals: CHIOMA ARVIZU NP [Primary Care Provider] - Follow up as needed [facility] [Provider Group] - Follow up tomorrow
== END 2019-03-08 20:00 | disposition home or self-care (01) ==
LOC: ER 19:04
DX: M54.12 Radiculopathy, cervical region (principal); M79.602 Pain in left arm; M54.2 Cervicalgia; I25.10 Atherosclerotic heart disease of native coronary artery without angina pectoris; I10 Essential (primary) hypertension; J45.909 Unspecified asthma, uncomplicated; Z95.5 Presence of coronary angioplasty implant and graft; Z87.891 Personal history of nicotine dependence
CPT/HCPCS: 99283; J7512

== ENCOUNTER 2019-08-22 12:42 | Emergency (ER) | payer SELFPAY ==
[2019-08-22] MEDS ORDERED: ASPIRIN 81 MG TABLET, CHEWABLE PO ONE (13:04)
--- NOTE | 2019-08-22 13:06 | ER Document Report ---
ED Medical Screen (RME) - General Chief Complaint: Chest Pain Stated Complaint: CHEST PAIN Time Seen by Provider: 08/22/19 12:58 Primary Care Provider: CHIOMA ARVIZU NP [Primary Care Provider] - Follow up as needed Notes: HPI: 43-year-old HIV-positive female presenting for midsternal chest pressure and sharp discomfort that began around 11 AM this morning. No trauma. States the discomfort comes and goes and takes her breath when it does come on. Denies abdominal pain or vomiting. States the discomfort goes into the back and into the left shoulder and arm. She did take 2 baby aspirin at home without change in the discomfort. Patient was here 1 year ago for similar discomfort was admitted to the hospital had a stress test that was negative at that time I have greeted and performed a rapid initial assessment of this patient. A comprehensive ED assessment and evaluation of the patient, analysis of test results and completion of the medical decision making process will be conducted by additional ED providers PHYSICAL EXAMINATION: Dry mucous membranes. Patient appears mildly uncomfortable. No abdominal pain on palpation of the upper abdomen limited by positioning in triage. Mild tenderness over the anterior sternal chest wall on palpation. EKG normal sinus rhythm without ectopy with a ventricular rate of 69 I have greeted and performed a rapid initial assessment of this patient. A c omprehensive ED assessment and evaluation of the patient, analysis of test results and completion of medical decision making process will be conducted by an additional ED providers. TRAVEL OUTSIDE OF THE [place] IN LAST 30 DAYS: No - Related Data Allergies/Adverse Reactions: efavirenz [From Sustiva] Allergy (Verified 08/22/19 12:57) lamotrigine [From Lamictal] Allergy (Verified 08/22/19 12:57) Penicillins Allergy (Verified 08/22/19 12:57) Past Medical History - Social History Frequency of alcohol use: Rare Drug Abuse: None - Past Medical History Cardiac Medical History: Reports: Hx Coronary Artery Disease, Hx Heart Attack, Hx Hypercholesterolemia, Hx Hypertension Denies: Hx Congestive Heart Failure Pulmonary Medical History: Reports: Hx Asthma, Hx Bronchitis, Hx Pneumonia Denies: Hx COPD, Hx Tuberculosis Neurological Medical History: Denies: Hx Seizures, Hx Parkinson's Disease Renal/ Medical History: Reports: Hx Kidney Stones. Denies: Hx End Stage Renal Disease, Hx Peritoneal Dialysis GI Medical History: Reports: Hx Gastroesophageal Reflux Disease. Denies: Hx Cirrhosis, Hx Ulcer Musculoskeltal Medical History: Reports Hx Arthritis, Denies Hx Multiple Sclerosis Psychiatric Medical History: Reports: Hx Bipolar Disorder, Hx Depression Denies: Hx Schizophrenia Past Surgical History: Reports: Hx Cardiac Catheterization - with stent, Hx Orthopedic Surgery - carpal tunnel, Hx Tubal Ligation Physical Exam - Vital signs Vitals: Temp Pulse Resp BP Pulse Ox 97.6 F 64 18 109/75 98 08/22/19 12:50 08/22/19 12:50 08/22/19 12:50 08/22/19 12:50 08/22/19 12:50 Course - Vital Signs Vital signs: Temp Pulse Resp BP Pulse Ox 97.6 F 64 18 109/75 98 08/22/19 12:50 08/22/19 12:50 08/22/19 12:50 08/22/19 12:50 08/22/19 12:50 Doctor's Discharge - Discharge Referrals: CHIOMA ARVIZU NP [Primary Care Provider] - Follow up as needed
[2019-08-22 13:36] LABS: ABSOLUTE BASOPHILS # (AUTO) 0.1 10^3/uL (0.0-0.2); ABSOLUTE EOSINOPHILS # (AUTO) 0.2 10^3/uL (0.0-0.6); ABSOLUTE LYMPHOCYTES (AUTO) 4.5 10^3/uL (0.5-4.7); ABSOLUTE MONOCYTES (AUTO) 0.6 10^3/uL (0.1-1.4); ABSOLUTE NEUT (AUTO) 6.8 10^3/uL (1.7-8.2); BASOPHILS % (AUTO) 0.7 % (0-2); EOSINOPHILS % (AUTO) 1.7 % (0-6); HEMATOCRIT 43.9 % (36.0-47.0); HEMOGLOBIN 15.3 g/dL (12.0-15.5); LYMPHOCYTES % (AUTO) 36.8 % (13-45); MEAN CORPUSCULAR HEMOGLOBIN 31.1 pg (27.0-33.4); MEAN CORPUSCULAR HGB CONC 34.8 g/dL (32.0-36.0); MEAN CORPUSCULAR VOLUME 89 fl (80-97); MONOCYTES % (AUTO) 5.3 % (3-13); PLATELET COUNT 361 10^3/uL (150-450); RED BLOOD COUNT 4.92 10^6/uL (3.72-5.28); RED CELL DISTRIBUTION WIDTH 13.2 % (11.5-14.0); SEGMENTED NEUTROPHILS % (AUTO) 55.5 % (42-78); TOTAL CELLS COUNTED % (AUTO) 100 %; WHITE BLOOD COUNT 12.2 10^3/uL (4.0-10.5)
--- NOTE | 2019-08-22 13:39 | RADIOLOGY REPORT (SQ) ---
EXAM DESCRIPTION: CHEST SINGLE VIEW IMAGES COMPLETED DATE/TIME: 08/22/2019 1:27 pm REASON FOR STUDY: chest pain COMPARISON: None. EXAM PARAMETERS: NUMBER OF VIEWS: One view. TECHNIQUE: Single frontal radiographic view of the chest acquired. RADIATION DOSE: NA LIMITATIONS: None. FINDINGS: LUNGS AND PLEURA: No opacities, masses or pneumothorax. No pleural effusion. MEDIASTINUM AND HILAR STRUCTURES: No masses. Contour normal. HEART AND VASCULAR STRUCTURES: Heart normal in size. Normal vasculature. BONES: No acute findings. HARDWARE: None in the chest. OTHER: No other significant finding. IMPRESSION: NO ACUTE RADIOGRAPHIC FINDING IN THE CHEST. TECHNICAL DOCUMENTATION: JOB ID: [id number] 2010 [employer]- All Rights Reserved Reading location - IP/workstation name: [email or web address]
[2019-08-22 13:47] LABS: INTERNATIONAL RATION (INR) 0.93; PROTHROMBIN TIME 12.5 SEC (11.4-15.4)
[2019-08-22 13:53] LABS: ALBUMIN 4.2 g/dL (3.5-5.0); ALKALINE PHOSPHATASE 158 U/L (38-126); ANION GAP 7 (5-19); ASPARTATE AMINO TRANSFERASE 29 U/L (14-36); BILIRUBIN,TOTAL 0.4 mg/dL (0.2-1.3); BLOOD UREA NITROGEN 14 mg/dL (7-20); CALCIUM 9.4 mg/dL (8.4-10.2); CARBON DIOXIDE 23 mmol/L (22-30); CHLORIDE 106 mmol/L (98-107); GLUCOSE 106 mg/dL (75-110); POTASSIUM 4.7 mmol/L (3.6-5.0); TOTAL PROTEIN 7.2 g/dL (6.3-8.2)
[2019-08-22] MEDS ORDERED: MAG HYDROX/AL HYDROX/SIMETH SUSP 30 ML UDCUP PO ONE (15:16)
[2019-08-22] MEDS ORDERED: LIDOCAINE 2% VISCOUS SOLN 15 ML UDCUP PO ONE (15:16)
[2019-08-22] MEDS ORDERED: METOCLOPRAMIDE HCL ORAL SOLN 10 MG/10 ML UDCUP PO ONE (15:16)
[2019-08-22] MEDS ORDERED: NITROGLYCERIN 0.4 MG/TAB 25 TAB/BOTTLE SL PRN (20:34)
--- NOTE | 2019-08-22 20:35 | ER Document Report ---
ED Cardiac - General Chief Complaint: Chest Pain Stated Complaint: CHEST PAIN Time Seen by Provider: 08/22/19 12:58 Primary Care Provider: CHIOMA ARVIZU NP [Primary Care Provider] - Follow up as needed Mode of Arrival: Ambulatory Information source: Patient Notes: Patient is a 43-year-old female presenting to the emergency department chief complaint of chest pressure. Patient reports pain started around 11 AM this morning. She denies any trauma. She states the pain is a constant dull pressure with occasional sharp stabbing pains. She reports earlier she has shortness of breath and nausea. She does report a history of an ID in 2008 with 1 stent placement. She sees cardiology at [facility], she had a negative stress and echo done 1 year ago. She does report a history of hypertension, hyperlipidemia, HIV, and is a 30-year smoker. She last saw her radio electronics officer last week. TRAVEL OUTSIDE OF THE [place] IN LAST 30 DAYS: No - Related Data Allergies/Adverse Reactions: efavirenz [From Sustiva] Allergy (Verified 08/22/19 12:57) lamotrigine [From Lamictal] Allergy (Verified 08/22/19 12:57) Penicillins Allergy (Verified 08/22/19 12:57) Past Medical History - General Information source: Patient - Social History Smoking Status: Current Every Day Smoker Frequency of alcohol use: Rare Drug Abuse: None Family History: Hypertension Patient has suicidal ideation: No Patient has homicidal ideation: No - Past Medical History Cardiac Medical History: Reports: Hx Coronary Artery Disease, Hx Heart Attack, Hx Hypercholesterolemia, Hx Hypertension Denies: Hx Congestive Heart Failure Pulmonary Medical History: Reports: Hx Asthma, Hx Bronchitis, Hx Pneumonia Denies: Hx COPD, Hx Tuberculosis Neurological Medical History: Denies: Hx Seizures, Hx Parkinson's Disease Renal/ Medical History: Reports: Hx Kidney Stones. Denies: Hx End Stage Renal Disease, Hx Peritoneal Dialysis GI Medical History: Reports: Hx Gastroesophageal Reflux Disease. Denies: Hx Cirrhosis, Hx Ulcer Musculoskeletal Medical History: Reports Hx Arthritis, Denies Hx Multiple Sclerosis Psychiatric Medical History: Reports: Hx Bipolar Disorder, Hx Depression Denies: Hx Schizophrenia Past Surgical History: Reports: Hx Cardiac Catheterization - with stent, Hx Ort hopedic Surgery - carpal tunnel, Hx Tubal Ligation Review of Systems - Review of Systems Constitutional: No symptoms reported EENT: No symptoms reported Cardiovascular: Chest pain Respiratory: Short of breath Gastrointestinal: Nausea Genitourinary: No symptoms reported Female Genitourinary: No symptoms reported Musculoskeletal: No symptoms reported Skin: No symptoms reported Hematologic/Lymphatic: No symptoms reported Neurological/Psychological: No symptoms reported Physical Exam - Vital signs Vitals: Temp Pulse Resp BP Pulse Ox 97.6 F 64 18 109/75 98 08/22/19 12:50 08/22/19 12:50 08/22/19 12:50 08/22/19 12:50 08/22/19 12:50 - Notes Notes: PHYSICAL EXAMINATION: GENERAL: Well-appearing, well-nourished and in no acute distress. HEAD: Atraumatic, normocephalic. EYES: Pupils equal round and reactive to light, extraocular movements intact, conjunctiva are normal. ENT: Nares patent, oropharynx clear without exudates. Moist mucous membranes. NECK: Normal range of motion, supple without lymphadenopathy LUNGS: Breath sounds clear to auscultation bilaterally and equal. No wheezes rales or rhonchi. HEART: Regular rate and rhythm without murmurs ABDOMEN: Soft, nontender, nondistended abdomen. No guarding, no rebound. No masses appreciated. Female : deferred Musculoskeletal: Normal range of motion, no pitting or edema. No cyanosis. NEUROLOGICAL: Cranial nerves grossly intact. Normal speech, normal gait. Normal sensory, motor exams PSYCH: Normal mood, normal affect. SKIN: Warm, Dry, normal turgor, no rashes or lesions noted. Course - Re-evaluation Re-evalutation: Patient appears well, nontoxic, vital signs within normal limits. The time of my initial evaluation patient has been in the emergency department for about 8 hours. She had already has 2- troponins. She has a normal chest x-ray and otherwise normal labs. EKG shows a sinus rhythm, rate of 69, QTc 412, no ST segment elevations or depressions to suggest ischemia, unchanged from previous EKG done on 08/20/2018. She does have a radio electronics officer, she saw him last week. She reports a negative stress and negative echo 1 year ago. She has a heart score of 3. - Vital Signs Vital signs: Temp Pulse Resp BP Pulse Ox 98.6 F 64 23 H 109/75 99 08/22/19 17:19 08/22/19 12:50 08/22/19 17:19 08/22/19 12:50 08/22/19 17:19 - Laboratory Result Diagrams: 08/22/19 13:15 08/22/19 13:15 Laboratory results interpreted by me: 08/22/19 08/22/19 13:15 13:15 WBC 12.2 H Sodium 135.7 L Est GFR (MDRD) Non-Af 58 L Alkaline Phosphatase 158 H Discharge - Discharge Clinical Impression: Chest pain Qualifiers: Chest pain type: unspecified Qualified Code(s): R07.9 - Chest pain, unspecified Condition: Stable Disposition: HOME, SELF-CARE Additional Instructions: You were seen today for chest pain. The exact cause of your pain is unclear. However, based on your cardiac enzyme testing, chest x-ray, and EKG it does not appear that it is from an immediately life-threatening cause at this time. Although your testing here is normal is critical that you follow-up with your primary care physician for continued evaluation of this chest pain and possible stress testing. I recommended you see your physician within the next 24-48 hours to be evaluated for consideration of a stress test. Please return to emergency department immediately if you have worsening of your chest pain, shortness of breath, vomiting, become unable to exert yourself due to pain or difficulty breathing, you pass out, or have any pain that radiates into your arms, jaw, or back. Please also return if you have any additional symptoms that are concerning to you. Prescriptions: Hydrocodone/Acetaminophen [[place] 5-325 mg Tablet] 1 tab PO Q6H PRN #12 tablet PRN Reason: For Pain Ondansetron [Zofran Odt 4 mg Tablet] 1 - 2 tab PO Q4H PRN #15 tab.rapdis PRN Reason: For Nausea/Vomiting Referrals: CHIOMA ARVIZU, PROCESSING OPERATOR [Primary Care Provider] - Follow up as needed
[2019-08-22] MEDS ORDERED: KETOROLAC TROMETHAMINE INJ/PF 30 MG/1 ML SDV IV ONE (21:00)
[2019-08-22] MEDS ORDERED: NORMAL SALINE 1000 ML 1,000 ML IV ONE (21:00)
[2019-08-22] MEDS ORDERED: FENTANYL CITRATE INJ/PF 100 MCG/2 ML AMPUL IV ONE (21:32)
--- NOTE | 2019-08-22 22:31 | EKG REPORT ---
SEVERITY:- NORMAL ECG - SINUS RHYTHM : Confirmed by: Rosalva Holloway MD 22-Aug-2019 22:30:19
[2019-08-22] MEDS ORDERED: ONDANSETRON ODT 4 MG TAB (6 TAB/ER DISP) PO PRN (23:16)
[2019-08-22] MEDS ORDERED: HYDROCODONE/ACETAMINOPHEN 5-325 MG (6 TAB/ER DISP) PO PRN (23:16)
[2019-08-22 23:29] VITALS: BP 93/59
== END 2019-08-22 23:26 | disposition home or self-care (01) ==
LOC: ER 12:42
DX: R07.89 Other chest pain (principal); R06.02 Shortness of breath; R11.0 Nausea; I25.2 Old myocardial infarction; I10 Essential (primary) hypertension; I25.10 Atherosclerotic heart disease of native coronary artery without angina pectoris; J45.909 Unspecified asthma, uncomplicated; F17.200 Nicotine dependence, unspecified, uncomplicated; Z87.01 Personal history of pneumonia (recurrent); Z21 Asymptomatic human immunodeficiency virus [HIV] infection status; Z95.5 Presence of coronary angioplasty implant and graft; Z88.8 Allergy status to other drugs, medicaments and biological substances; Z88.0 Allergy status to penicillin; Z88.3 Allergy status to other anti-infective agents
CPT/HCPCS: 93005; 99285; 96361; 96374; 96375; 36415; 85025; 85610; 80053; 84484; 71045; 93010; J3010; J3490; J1885; J7030

== ENCOUNTER 2020-01-06 16:49 | Emergency (ER) | payer SELFPAY ==
--- NOTE | 2020-01-06 18:06 | ER Document Report ---
ED General - General Chief Complaint: Shortness Of Breath Stated Complaint: SHORT OF BREATH,NAUSEA,CHILLS Primary Care Provider: CHIOMA ARVIZU NP [Primary Care Provider] - Follow up as needed Notes: Patient is a 44-year-old white female with a history of HIV, CAD with prior AZ with stenting who is a current everyday smoker who presents to the emergency department the chief complaint of shortness of breath. She states it began yesterday. States that she has soreness in the chest with shortness of breath. States it is related to a very sore throat with slight hoarseness. She states the pain in the throat is worse with swallowing and oral intake and palliated by nothing. She states she has had sweats and chills but no known fevers. She admits to some nausea and some slight diarrhea but only one episode of vomiting. She denies any known sick contacts or recent travel. She states about a week or so ago she had an endoscopy and a colonoscopy. She states she went to work today they were concerned for her wellbeing and sent her for evaluation. She denies any lower extremity pain or swelling, hemoptysis, history of DVT or PE, recent travel or recent immobilization. No history of cancer. Patient also adds that she has had some vague lower abdominal discomfort that she reports is worsened with urination. TRAVEL OUTSIDE OF THE [place] IN LAST 30 DAYS: No - Related Data Allergies/Adverse Reactions: efavirenz [From Sustiva] Allergy (Verified 01/06/20 18:33) lamotrigine [From Lamictal] Allergy (Verified 01/06/20 18:33) Penicillins Allergy (Verified 01/06/20 18:33) Home Medications: asa, ameprazole, atenolol, lisinpril, gabapentin, tivicay, tezanidinde, descovy, atorvastatin, nitro, albuterol neb, and inhaler, loratid ine, Past Medical History - Social History Smoking Status: Current Every Day Smoker Frequency of alcohol use: Rare Drug Abuse: None Family History: Hypertension Patient has homicidal ideation: No - Past Medical History Cardiac Medical History: Reports: Hx Coronary Artery Disease, Hx Heart Attack, Hx Hypercholesterolemia, Hx Hypertension Denies: Hx Congestive Heart Failure Pulmonary Medical History: Reports: Hx Asthma, Hx Bronchitis, Hx Pneumonia Denies: Hx COPD, Hx Tuberculosis Neurological Medical History: Denies: Hx Seizures, Hx Parkinson's Disease Renal/ Medical History: Reports: Hx Kidney Stones. Denies: Hx End Stage Renal Disease, Hx Peritoneal Dialysis GI Medical History: Reports: Hx Gastroesophageal Reflux Disease. Denies: Hx Cirrhosis, Hx Ulcer Musculoskeletal Medical History: Reports Hx Arthritis, Denies Hx Multiple Sclerosis Psychiatric Medical History: Reports: Hx Bipolar Disorder, Hx Depression Denies: Hx Schizophrenia Past Surgical History: Reports: Hx Cardiac Catheterization - with stent, Hx Orthopedic Surgery - carpal tunnel, Hx Tubal Ligation Review of Systems - Review of Systems Constitutional: Chills, Malaise EENT: Throat pain Cardiovascular: Chest pain Respiratory: Short of breath Gastrointestinal: Abdominal pain Genitourinary: Pain Female Genitourinary: denies: Vaginal discharge Musculoskeletal: denies: Neck pain Skin: denies: Rash Hematologic/Lymphatic: denies: Easy bruising Neurological/Psychological: denies: Headaches Physical Exam - Vital signs Vitals: Temp Pulse Resp BP Pulse Ox 98.0 F 70 20 104/53 L 99 01/06/20 16:59 01/06/20 16:59 01/06/20 16:59 01/06/20 16:59 01/06/20 16:59 - General General appearance: Appears well, Alert In distress: None - HEENT Head: Normocephalic, Atraumatic Eyes: Normal Conjunctiva: Normal Extraocular movements intact: Yes Eyelashes: Normal Pupils: PERRL Ears: Normal External canal: Normal Tympanic membrane: Normal Nasal: Normal Mouth/Lips: Normal Mucous membranes: Normal Pharynx: Other - Injected posterior pharynx. No tonsillar hypertrophy. No uvula edema or erythema. Airway patent. Handling secretions well. No sublingual or submental swelling. No trismus. Neck: Lymphadenopathy - Tender, Supple. No: Brudzinski, Kernig's, Meningismus - Respiratory Respiratory status: No respiratory distress Chest status: Nontender Breath sounds: Normal Chest palpation: Normal - Cardiovascular Rhythm: Regular Heart sounds: Normal auscultation - Abdominal Inspection: Normal Distension: No distension Bowel sounds: Normal Tenderness: Other - Slight tenderness to palpation suprapubic region Organomegaly: No organomegaly - Extremities General upper extremity: No: Edema General lower extremity: No: Edema, Luis's sign - Neurological Neuro grossly intact: Yes Cognition: Normal Orientation: AAOx4 - Psychological Associated symptoms: Normal affect, Normal mood - Skin Skin Temperature: Warm Skin Moisture: Dry Skin Color: Normal Course - Re-evaluation Re-evalutation: 01/06/20 19:21 EKG: Sinus rhythm at 70 bpm. Normal intervals. T wave inversion in V1. No prior for comparison. No STEMI. Interpreted by myself in conjunction with ED attending. 01/06/20 20:10 Troponin negative. X-ray negative for acute process per radiologist. Patient with a positive rapid strep test. This is consistent with her clinical presentation and sore throat. She is also pending a COVID-19 swab given her history and other symptoms. She will quarantine in her home until a negative result is achieved. She started on Zithromax today here in the ED since she is penicillin allergic. Counseled her at length regarding the importance of outp atient follow-up and advised that she return here or any ER immediately with any new, persistent or worsening symptoms. She verbalized understood and agreed. - Vital Signs Vital signs: Temp Pulse Resp BP Pulse Ox 98.0 F 70 20 104/53 L 99 01/06/20 16:59 01/06/20 16:59 01/06/20 16:59 01/06/20 16:59 01/06/20 16:59 - Laboratory Result Diagrams: 01/06/20 18:50 01/06/20 18:50 Laboratory results interpreted by me: 01/06/20 01/06/20 01/06/20 18:50 18:50 18:50 WBC 11.5 H Alkaline Phosphatase 147 H NT-Pro-B Natriuret Pep 199 H Urine Blood 01/06/20 18:50 WBC Alkaline Phosphatase NT-Pro-B Natriuret Pep Urine Blood MODERATE H Discharge - Discharge Clinical Impression: Strep throat, Person under investigation for COVID-19 Condition: Stable Disposition: HOME, SELF-CARE Instructions: Strep Throat ([facility]), COVID-19 Guidance for Persons Under Investigation Additional Instructions: You are a patient under investigation for COVID-19. Please quarantine in your home in isolation until you receive a call with a negative result or until you are 24 hours symptom-free without the use of medications. Please follow-up with your regular doctor in 2 to 3 days for reevaluation. Please return here or any ER immediately with any new, persistent or worsening symptoms. Prescriptions: Azithromycin [Zithromax 250 mg Tablet] 250 mg PO DAILY #4 tablet Referrals: CHIOMA ARVIZU NP [Primary Care Provider] - Follow up as needed
--- NOTE | 2020-01-06 18:56 | RADIOLOGY REPORT (SQ) ---
EXAM DESCRIPTION: CHEST SINGLE VIEW IMAGES COMPLETED DATE/TIME: 01/06/2020 6:37 pm REASON FOR STUDY: sob COMPARISON: 08/22/2019 EXAM PARAMETERS: NUMBER OF VIEWS: One view. TECHNIQUE: Single frontal radiographic view of the chest acquired. RADIATION DOSE: NA LIMITATIONS: None. FINDINGS: LUNGS AND PLEURA: No opacities, masses or pneumothorax. No pleural effusion. MEDIASTINUM AND HILAR STRUCTURES: No masses. Contour normal. HEART AND VASCULAR STRUCTURES: Heart normal in size. Normal vasculature. BONES: No acute findings. HARDWARE: None in the chest. OTHER: No other significant finding. IMPRESSION: NO ACUTE RADIOGRAPHIC FINDING IN THE CHEST. TECHNICAL DOCUMENTATION: JOB ID: [id number] 2010 [employer]- All Rights Reserved Reading location - IP/workstation name: [email or web address]
[2020-01-06 19:22] LABS: ABSOLUTE BASOPHILS # (AUTO) 0.1 10^3/uL (0.0-0.2); ABSOLUTE EOSINOPHILS # (AUTO) 0.2 10^3/uL (0.0-0.6); ABSOLUTE LYMPHOCYTES (AUTO) 4.4 10^3/uL (0.5-4.7); ABSOLUTE MONOCYTES (AUTO) 0.7 10^3/uL (0.1-1.4); ABSOLUTE NEUT (AUTO) 6.1 10^3/uL (1.7-8.2); BASOPHILS % (AUTO) 0.5 % (0-2); EOSINOPHILS % (AUTO) 1.9 % (0-6); HEMATOCRIT 42.5 % (36.0-47.0); HEMOGLOBIN 14.5 g/dL (12.0-15.5); LYMPHOCYTES % (AUTO) 38.4 % (13-45); MEAN CORPUSCULAR HEMOGLOBIN 31.4 pg (27.0-33.4); MEAN CORPUSCULAR VOLUME 92 fl (80-97); MONOCYTES % (AUTO) 5.8 % (3-13); PLATELET COUNT 311 10^3/uL (150-450); RED CELL DISTRIBUTION WIDTH 13.3 % (11.5-14.0); SEGMENTED NEUTROPHILS % (AUTO) 53.4 % (42-78); TOTAL CELLS COUNTED % (AUTO) 100 %; WHITE BLOOD COUNT 11.5 10^3/uL (4.0-10.5)
[2020-01-06 19:26] LABS: INTERNATIONAL RATION (INR) 0.84; PROTHROMBIN TIME 11.7 SEC (11.4-15.4)
[2020-01-06 19:27] LABS: APPEARANCE,URINE SLIGHTLY-CLOUDY; BILIRUBIN,URINE NEGATIVE (NEGATIVE); COLOR,URINE YELLOW; GLUCOSE, URINE NEGATIVE (NEGATIVE); KETONES,URINE NEGATIVE (NEGATIVE); PARTIAL THROMBOPLASTIN TIME 26.3 SEC (23.5-35.8); PROTEIN,URINE NEGATIVE (NEGATIVE); URINE SPECIFIC GRAVITY 1.006; UROBILINOGEN,URINE NEGATIVE mg/dL (<2.0)
[2020-01-06 19:31] LABS: RBC,URINE 0-1 /HPF
[2020-01-06 19:42] LABS: ALKALINE PHOSPHATASE 147 U/L (38-126); ASPARTATE AMINO TRANSFERASE 27 U/L (14-36); BILIRUBIN,DIRECT 0.2 mg/dL (0.0-0.4); BILIRUBIN,TOTAL 0.4 mg/dL (0.2-1.3); BLOOD UREA NITROGEN 10 mg/dL (7-20); CALCIUM 9.2 mg/dL (8.4-10.2); CHLORIDE 105 mmol/L (98-107); CREATINE KINASE 80 U/L (30-135); GLUCOSE 107 mg/dL (75-110)
[2020-01-06 19:47] LABS: ANION GAP 9 (5-19); CARBON DIOXIDE 25 mmol/L (22-30)
[2020-01-06 19:51] LABS: NT PRO BNP 199 pg/mL (<125)
[2020-01-06 19:52] LABS: TROPONIN I < 0.012 ng/mL
[2020-01-06] MEDS ORDERED: AZITHROMYCIN 250 MG TABLET PO ONE (19:59)
[2020-01-06 20:45] VITALS: BP 138/84
--- NOTE | 2020-01-07 11:20 | EKG REPORT ---
SEVERITY:- NORMAL ECG - SINUS RHYTHM : Confirmed by: Rosalva Holloway MD 07-Jan-2020 11:19:49
== END 2020-01-06 20:42 | disposition home or self-care (01) ==
LOC: ER 16:49
DX: J02.0 Streptococcal pharyngitis (principal); R10.30 Lower abdominal pain, unspecified; R06.02 Shortness of breath; R07.9 Chest pain, unspecified; R49.0 Dysphonia; R19.7 Diarrhea, unspecified; R11.2 Nausea with vomiting, unspecified; Z20.828 Contact with and (suspected) exposure to other viral communicable diseases; Z88.8 Allergy status to other drugs, medicaments and biological substances; Z88.0 Allergy status to penicillin; Z79.899 Other long term (current) drug therapy; B20 Human immunodeficiency virus [HIV] disease; I25.10 Atherosclerotic heart disease of native coronary artery without angina pectoris; I25.2 Old myocardial infarction; F17.200 Nicotine dependence, unspecified, uncomplicated
CPT/HCPCS: 93005; 99285; 36415; 87880; 82550; 85025; 85610; 85730; 87635; 80053; 81001; 84484; 85379; 83880; 71045; 93010; C9803

== ENCOUNTER 2020-03-31 09:04 | Emergency (ER) | payer SELFPAY ==
[2020-03-31 09:09] VITALS: BP 136/97
--- NOTE | 2020-03-31 09:32 | ER Document Report ---
ED General - General Chief Complaint: Shortness Of Breath Stated Complaint: CONGESTION Time Seen by Provider: 03/31/20 09:18 Primary Care Provider: CHIOMA ARVIZU NP [Primary Care Provider] - Follow up as needed Notes: 44-year-old asymptomatic HIV infection patient, chronic smoker presents with 3 days of "throat on fire" throat burning trouble swallowing shortness of breath wheezing cough and chest burning. Symptoms are moderate. Symptoms are slightly worsening. She had pneumonia before. She has not had a Covid test this time and is taking nothing at home. TRAVEL OUTSIDE OF THE [place] IN LAST 30 DAYS: No - Related Data Allergies/Adverse Reactions: efavirenz [From Sustiva] Allergy (Verified 01/06/20 18:33) lamotrigine [From Lamictal] Allergy (Verified 01/06/20 18:33) Penicillins Allergy (Verified 01/06/20 18:33) Past Medical History - General Information source: Patient - Social History Smoking Status: Current Every Day Smoker Smoking Education Provided: Yes - The patient ED visit today was directly related to their abuse of tobacco. Family History: Hypertension - Past Medical History Cardiac Medical History: Reports: Hx Coronary Artery Disease, Hx Heart Attack, Hx Hypercholesterolemia, Hx Hypertension Denies: Hx Congestive Heart Failure Pulmonary Medical History: Reports: Hx Asthma, Hx Bronchitis, Hx Pneumonia Denies: Hx COPD, Hx Tuberculosis Neurological Medical History: Denies: Hx Seizures, Hx Parkinson's Disease Renal/ Medical History: Reports: Hx Kidney Stones. Denies: Hx End Stage Renal Disease, Hx Peritoneal Dialysis GI Medical History: Reports: Hx Gastroesophageal Reflux Disease. Denies: Hx Cirrhosis, Hx Ulcer Musculoskeletal Medical History: Reports Hx Arthritis, Denies Hx Multiple Sclerosis Psychiatric Medical History: Reports: Hx Bipolar Disorder, Hx Depression Denies: Hx Schizophrenia Past Surgical History: Reports: Hx Cardiac Catheterization - with stent, Hx Orthopedic Surgery - carpal tunnel, Hx Tubal Ligation Review of Systems - Review of Systems Notes: REVIEW OF SYSTEMS GEN: Fatigue fever ENT: Throat EYES: Denies blurry vision, eye pain, discharge CV: Denies chest pain, palpitations, edema RESP: Wheezing GI: Denies abdominal pain, nausea, vomiting, diarrhea MSK: Denies joint pain/swelling, edema, SKIN: Denies rash, skin lesions LYMPH: Denies swollen glands/lymph nodes NEURO: Denies headache, focal weakness or numbness, dizziness PSYCH: Denies depression, suicidal or homicidal ideation PHYSICAL EXAMINATION General: No acute distress, well-nourished Head: Atraumatic, normocephalic ENT: Mouth normal, oropharynx moist, no exudates or tonsillar enlargement Eyes: Conjunctiva normal, pupils equal, lids normal Neck: No JVD, supple, no guarding CVS: Normal rate, regular rhythm, no murmurs Resp: Scant expiratory wheezing no rhonchi normal work of breathing GI: Nondistended, soft, no tenderness to palpation, no rebound or guarding Ext: No deformities, no edema, normal range of motion in upper and lower ext Back: No CVA or midline TTP Skin: No rash, warm Lymphatic: No lymphadeopathy noted Neuro: Awake, alert. Face symmetric. GCS 15. Physical Exam - Vital signs Vitals: Temp Pulse Resp BP Pulse Ox 98.1 F 96 20 136/97 H 98 03/31/20 09:08 03/31/20 09:08 03/31/20 09:08 03/31/20 09:08 03/31/20 09:08 Course - Re-evaluation Re-evalutation: 03/31/20 09:31 URI versus bronchitis less likely pneumonia but given HIV will prescribe Doxy. Symmetric lung sounds normal saturation of the work of breathing does not need a chest film given we are giving antibiotics anyway Already has albuterol. Will place on prednisone counseled on smoking cessation, and will get Covid test across the street rapid I have discussed with the patient there likely diagnosis, aftercare plan, follow-up plans and my usual and customary return precautions. They verbalized understanding of this. - Vital Signs Vital signs: Temp Pulse Resp BP Pulse Ox 98.1 F 96 20 136/97 H 98 03/31/20 09:08 03/31/20 09:08 03/31/20 09:08 03/31/20 09:08 03/31/20 09:08 Discharge - Discharge Clinical Impression: Encounter for tobacco use cessation counseling Acute bronchitis Qualifiers: Bronchitis organism: unspecified organism Qualified Code(s): J20.9 - Acute bronchitis, unspecified Condition: Good Disposition: HOME, SELF-CARE Prescriptions: Prednisone [Deltasone 20 mg Tablet] 20 mg PO DAILY #5 tablet Doxycycline Hyclate 100 mg PO RTBID #20 tablet. Forms: Return to Work Referrals: CHIOMA ARVIZU NP [Primary Care Provider] - Follow up as needed
== END 2020-03-31 09:34 | disposition home or self-care (01) ==
LOC: ER 09:04
DX: J45.909 Unspecified asthma, uncomplicated (principal); J20.9 Acute bronchitis, unspecified; R06.02 Shortness of breath; R09.81 Nasal congestion; R05 Cough; R07.9 Chest pain, unspecified; Z88.0 Allergy status to penicillin; Z88.8 Allergy status to other drugs, medicaments and biological substances; F17.210 Nicotine dependence, cigarettes, uncomplicated; I25.10 Atherosclerotic heart disease of native coronary artery without angina pectoris; I25.2 Old myocardial infarction; I10 Essential (primary) hypertension
CPT/HCPCS: 99283